=== PATIENT | male | born 1995 | race Caucasian/White ===

== ENCOUNTER 2023-03-30 07:59 | Inpatient (IN) | payer OTHER, SELFPAY ==
[2023-03-30] VITALS (79 sets, daily range): BP systolic 66–155; BP diastolic 41–87; PULSE 68–165; RESP 2–37; TEMP 37.3–37.4; O2SAT 95–100; BMI 22.3; BMI 24.3
--- NOTE | 2023-03-30 08:05 | ECG_ITS ---
[facility] Test Date: 2023-03-30 Pat Name: ADELA VILLASENOR Department: Room: - Gender: Male Medical Scribe: : 1995 Requested By: Order Number: [id number] Reading MD: STACEY WHELAN Measurements Intervals [place] Rate: 146 P: 79 SC: 142 QRS: 68 QRSD: 110 T: 80 QT: 304 QTc: 388 Interpretive Statements 1120 Sinus tachycardia 2440 Incomplete right bundle branch block Nonspecific ST/T wave changes 9150 abnormal ECG No previous ECG available for comparison Electronically Signed On 04-01-2023 11:35:14 EDT by STACEY WHELAN
--- NOTE | 2023-03-30 08:05 | XR_ITS ---
[address] [address] Patient Name: TYREL VILLASENOR MRN: [id number] date: 1995 Sex: M Assigned Patient Location: ER Current Patient Location: ER Accession/Order Number: [id number] Exam Date: 03/30/2023 08:13 Report Date: 03/30/2023 08:29 At the request of: IZTA HILL Procedure: XR chest 1V EXAM: XR chest 1V HISTORY: Tachycardia. COMPARISON: None. TECHNIQUE: AP erect portable view of the chest performed. FINDINGS: The trachea is normal. The cardiomediastinal silhouette and hilar shadows are normal. The lung volumes are normal. The lung baig are clear. There is no pneumothorax or osseous abnormality. IMPRESSION: Unremarkable AP erect portable chest radiograph. Electronically authenticated by: JAYSHREE MATSON Date: 03/30/2023 08:29
--- NOTE | 2023-03-30 08:10 | ED.PSYCH1 ---
HPI - Psych General Chief Complaint: Psychiatric Symptoms Stated Complaint: OVERDOSE Time Seen by Provider: 03/30/23 08:14 History of Present Illness HPI Narrative: 27-year-old male presents for psychiatric issues. He was apparently found wandering [place] the side of the highway and was brought in by police. He states he was doing cocaine and methamphetamine last night. He wants to go some place safe. There was no injury. He states he has a history of psychiatric issues. No fever or vomiting. It is not clear when his symptoms started. Related Data Home Medications Medication Instructions Recorded Confirmed buspirone 5 mg tablet 5 mg PO BID 03/30/23 03/30/23 divalproex 500 mg tablet,delayed 500 mg PO QID 03/30/23 03/30/23 release (Depakote) lorazepam 2 mg tablet 1 mg PO DAILY 03/30/23 03/30/23 Allergies Allergy/AdvReac Type Severity Reaction Status Date / Time No Known Drug Allergies Allergy Verified 03/30/23 08:09 Review of Systems ROS Narrative A ten point review of systems is negative except as noted above. PFS PFS Social History (Updated 03/30/23 @ 08:21 by Rosie Adamson) Within the past year, how often did you have a drink containing alcohol: monthly or less Within the past year, how many standard drinks containing alcohol did you have on a typical day: 5 or 6 Within the past year, how often did you have six or more drinks on one occasion: monthly Total score: 6 Score interpretation: A score of 4 or more indicates drinking is likely to affect patient's safety. Smoking status: Current every day smoker Exam Narrative Exam Narrative: Nurses note and vital signs reviewed and patient is not hypoxic. General: The patient appears to be twitching from time to time. He is cooperative. Skin: Warm, dry, no pallor noted. There is no rash noted. his hands are quite dirty because he states he was walking along the highway looking at things and picking things up. Head: Normocephalic, atraumatic Eye: Normal conjunctiva, no drainage, EOMI. PERRL Ears, Nose, Mouth, and Throat: oral mucosa is moist. Nares patent. Cardiovascular: Regular Rate and Rhythm, tachycardic Respiratory: Patient is in no distress, no accessory muscle use, lungs are clear to auscultation, no wheezing, rales or rhonchi Back: non-tender GI: soft and nontender Musculoskeletal: The patient has no evidence of calf tenderness, no pitting edema, symmetrical pulses noted bilaterally Neurological: A&O x4, normal speech Psychiatric: Cooperative Constitutional Vital Signs - 24 hr 03/30/23 08:11 Temperature 99.4 F Pulse Rate [Monitor] 145 H Respiratory Rate 21 Blood Pressure [Right Arm] 140/78 H Pulse Oximetry 97 Oxygen Delivery Method Room Air Course Vital Signs Vital signs: Vital Signs Temperature 99.4 F 03/30/23 08:11 Pulse Rate 145 H 03/30/23 08:11 Respiratory Rate 21 03/30/23 08:11 Blood Pressure 140/78 H 03/30/23 08:11 Pulse Oximetry 97 03/30/23 08:11 Oxygen Delivery Method Room Air 03/30/23 08:11 Temperature 99.4 F 03/30/23 08:11 Pulse Rate 145 H 03/30/23 08:11 Respiratory Rate 21 03/30/23 08:11 Blood Pressure 140/78 H 03/30/23 08:11 Pulse Oximetry 97 03/30/23 08:11 Oxygen Delivery Method Room Air 03/30/23 08:11 MDM - Psych MDM Narrative Medical decision making narrative: the patient presents because he was wandering on the side of the road and admits to using methamphetamine and cocaine which he tested positive for. He's been persistently tachycardic and was given IV fluids and a total of 2 mg of IV Ativan. Creatinine is 2.2 and potassium is 3.0. He was given IV fluids and oral potassium supplementation. WBC twenty-five thousand without a source of an infection. Blood cultures are pending. Elevated WBC is most likely from substance abuse. He is unable to give us any sort of definite psychiatric history but has a history of drug abuse. He cannot be cleared medically and will be admitted to ICU. Findings were discussed with the patient. Differential Diagnosis Differential diagnosis: Likely acute psychosis, bipolar disorder and drug-induced psychotic disorder Lab Data Attestation: I reviewed the patient's lab results. Labs: Lab Results 03/30/23 03/30/23 Range/Units 08:18 08:36 WBC 25.3 H (4.0-11.0) 10^3/uL RBC 4.84 (4.70-6.10) 10^6/uL Hgb 14.8 (14.0-18.0) g/dL Hct 42.6 (42.0-54.0) % MCV 88.0 (80.0-94.0) fL MCH 30.6 (25.9-34.0) pg MCHC 34.7 (29.9-35.2) g/dL RDW 12.3 (11.0-15.0) % Plt Count 199 (150-450) 10^3/uL MPV 10.3 (9.5-13.5) fL Seg Neuts % (Manual) 83.0 Lymphocytes % (Manual) 5.0 L (20.5-60.0) % Monocytes % (Manual) 12.0 (1.7-12.0) % Eosinophils % (Manual) 0.0 L (0.9-7.0) % Basophils % (Manual) 0.0 L (0.2-2.0) % Neutrophils # (Manual) 20.99 H (1.4-6.5) 10^3/uL Lymphocytes # (Manual) 1.26 (1.20-3.80) 10^3/uL Monocytes # (Manual) 3.03 H (0.30-0.80) 10^3/uL Eosinophils # (Manual) 0.00 (0.00-0.70) 10^3/uL Basophils # (Manual) 0.00 (0.00-0.10) 10^3/uL Sodium 142 (136-145) mmol/L Potassium 3.0 L (3.5-5.1) mmol/L Chloride 102 (98-107) mmol/L Carbon Dioxide 25.1 (21.0-32.0) mmol/L Anion Gap 17.9 BUN 18.0 (7.0-18.0) mg/dL Creatinine 2.18 H (0.70-1.30) mg/dL Est GFR ( Amer) 44 L (>=60) Est GFR (Non-Af Amer) 36 L (>=60) BUN/Creatinine Ratio 8.3 Glucose 81 (74-106) mg/dL Calcium 10.2 H (8.5-10.1) mg/dL Total Bilirubin 0.8 (0.2-1.0) mg/dL AST 148 H (15-37) U/L ALT 245 H (16-63) U/L Alkaline Phosphatase 63 (46-116) U/L Total Protein 8.7 H (6.4-8.2) g/dL Albumin 4.6 (3.4-5.0) g/dL Globulin 4.1 g/dL Albumin/Globulin Ratio 1.1 TSH 3.489 (0.358-3.740) uIU/mL Urine Color Yellow (YELLOW) Urine Clarity Clear (CLEAR) Urine pH 6.0 (5.0-9.0) Ur Specific [place] >=1.030 A (1.005-1.025) Urine Protein >=300 A (NEG/TRACE) mg/dL Urine Glucose (UA) Negative (NEGATIVE) mg/dL Urine Ketones Trace A (NEGATIVE) mg/dL Urine Occult Blood Large A (NEGATIVE) Urine Nitrite Negative (NEGATIVE) Urine Bilirubin Negative (NEGATIVE) Urine Urobilinogen 0.2 (0.2-1.0) EU/dL Ur Leukocyte Esterase Negative (NEGATIVE) Urine RBC 5-10 A (0-2) #/HPF Urine WBC 2-5 A (NONE SEEN) #/HPF Ur Squamous Epith Cells Few A (NONE/RARE) #/LPF Urine Crystals None seen (None Seen) #/HPF Urine Bacteria Trace A (NONE SEEN) #/HPF Urine Casts Seen A (NONE SEEN) #/LPF Hyaline Casts Few Urine Mucus Trace A (NONE SEEN) Urine Sperm Seen Ur Culture Indicated? No Urine Opiates Screen Negative (NEGATIVE) Ur Buprenorphine Scrn Negative (NEGATIVE) Ur Oxycodone Screen Negative (NEGATIVE) Urine Methadone Screen Negative (NEGATIVE) Ur Propoxyphene Screen Negative (NEGATIVE) Ur Barbiturates Screen Negative (NEGATIVE) U Tricyclic Antidepress Negative (NEGATIVE) Ur Phencyclidine Scrn Negative (NEGATIVE) Ur Amphetamines Screen Positive A (NEGATIVE) U Methamphetamines Scrn Positive A (NEGATIVE) U Benzodiazepines Scrn Negative (NEGATIVE) Urine Cocaine Screen Positive A (NEGATIVE) U Cannabinoids Screen Negative (NEGATIVE) Ethanol Quant <3 mg/dL ECG Data Attestation: I personally reviewed and interpreted this ECG as follows: (EKG on my interpretation shows sinus tachycardia.) Critical Care Time Critical Care Time Critical Care Time: Yes Total Critical Care Time: 35 Attestation: due to the high probability of sudden and significant clinical deterioration, critical care was necessary and provided by me. Discharge Plan Discharge Chief Complaint: Psychiatric Symptoms Clinical Impression: Active substance abuse Patient Disposition: Admitted As Inpatient Time of Disposition Decision: 09:29 Condition: Fair Prescriptions / Home Meds: No Action divalproex [Depakote] 500 mg tablet,delayed release (DR/EC) 500 mg PO QID buspirone 5 mg tablet 5 mg PO BID lorazepam 2 mg tablet 1 mg PO DAILY Referrals: Physician,Non-Staff, MD [Primary Care Provider] - 1 week
[2023-03-30] MEDS: LORAZEPAM 2 MG/ML 1 ML VIAL 1 MG IV ×2 (08:25→09:32)
[2023-03-30] MEDS: 0.9 % SODIUM CHLORIDE 1,000 ML 999 ML IV (08:25)
[2023-03-30 08:28] LABS: Hematocrit 42.6 % (42.0-54.0); Hemoglobin 14.8 g/dL (14.0-18.0); Mean Corpuscular HGB Conc 34.7 g/dL (29.9-35.2); Mean Corpuscular Hemoglobin 30.6 pg (25.9-34.0); Mean Platelet Volume 10.3 fL (9.5-13.5); Platelet Count 199 10^3/uL (150-450); Red Blood Count 4.84 10^6/uL (4.70-6.10); Red Cell Distribution Width 12.3 % (11.0-15.0); White Blood Count 25.3 10^3/uL (4.0-11.0)
[2023-03-30 08:46] LABS: Alanine Aminotransferase 245 U/L (16-63); Albumin Globulin Ratio 1.1; Albumin Level 4.6 g/dL (3.4-5.0); Alkaline Phosphatase 63 U/L (46-116); Anion Gap 17.9; Aspartate Amino Transferase 148 U/L (15-37); BUN Creatinine Ratio 8.3; Bilirubin Total 0.8 mg/dL (0.2-1.0); Calcium 10.2 mg/dL (8.5-10.1); Carbon Dioxide 25.1 mmol/L (21.0-32.0); Chloride 102 mmol/L (98-107); Estimated GFR (African America 44 (>=60); Estimated GFR (Non-African Ame 36 (>=60); Globulin 4.1 g/dL; Glucose 81 mg/dL (74-106); Sodium 142 mmol/L (136-145); Total Protein 8.7 g/dL (6.4-8.2)
[2023-03-30 08:51] LABS: Lymphocytes Absolute Manual 1.26 10^3/uL (1.20-3.80); Monocytes Absolute Manual 3.03 10^3/uL (0.30-0.80); Segmented Neut Absolute Manual 20.99 10^3/uL (1.4-6.5)
[2023-03-30 08:53] LABS: Bilirubin Urine NEGATIVE (NEGATIVE); Blood Urine LARGE (NEGATIVE); Clarity Urine CLEAR (CLEAR); Color Urine YELLOW (YELLOW); Glucose Urine UA NEGATIVE (NEGATIVE); Ketones Urine TRACE mg/dL (NEGATIVE); Leukocyte Esterase Urine NEGATIVE (NEGATIVE); Nitrite Urine NEGATIVE (NEGATIVE); Protein Urine >=300 mg/dL (NEG/TRACE); Specific Gravity Urine >=1.030 (1.005-1.025); Urobilinogen Urine 0.2 EU/dL (0.2-1.0)
[2023-03-30 08:54] LABS: Cannabinoid Screen Urine NEGATIVE (NEGATIVE); Cocaine Screen Urine POSITIVE (NEGATIVE); Phencyclidine Screen Urine NEGATIVE (NEGATIVE); Urine Microscopic Indicated YES
[2023-03-30 08:55] LABS: Amphetamine Screen Urine POSITIVE (NEGATIVE); Barbiturates Screen Urine NEGATIVE (NEGATIVE); Benzodiazepines Screen Urine NEGATIVE (NEGATIVE); Buprenorphine Screen Urine NEGATIVE (NEGATIVE); Methadone Screen Urine NEGATIVE (NEGATIVE); Methamphetamines Screen Urine POSITIVE (NEGATIVE); Opiate Screen Urine NEGATIVE (NEGATIVE); Oxycodone Screen Urine NEGATIVE (NEGATIVE); Tricyclic Antidepressant Urine NEGATIVE (NEGATIVE)
[2023-03-30 09:02] LABS: Cast Seen? SEEN #/LPF (NONE SEEN); Crystals Seen? None Seen #/HPF (None Seen); Hyaline Casts Urine FEW; Sperm Urine SEEN; Squamous Epithelial Cell Urine FEW #/LPF (NONE/RARE)
[2023-03-30 09:03] LABS: Ethanol <3 mg/dL
[2023-03-30 09:04] LABS: Bacteria Urine TRACE #/HPF (NONE SEEN); Mucus Urine TRACE (NONE SEEN); Urine Culture Indicated NO
[2023-03-30] MEDS: POTASSIUM BICARBONATE/CIT 25 MEQ TABLET EFF 50 MEQ PO (09:10)
[2023-03-30 09:12] LABS: Thyroid Stimulating Hormone 3.489 uIU/mL (0.358-3.740)
[2023-03-30 10:10] LABS: Creatine Kinase 3385 U/L (39-308)
[2023-03-30 11:01] LABS: Valproic Acid 27.9 ug/mL (50.0-100.0)
[2023-03-30] MEDS: NICOTINE 21 MG PATCH.TD24 TD ×2 (11:06→17:36)
[2023-03-30] MEDS: 0.9 % SODIUM CHLORIDE 1,000 ML 1000 ML IV (11:09)
--- NOTE | 2023-03-30 12:10 | US_ITS ---
[facility] [place] [id number] Patient Name: TYREL VILLASENOR MRN: [id number] date: 1995 Sex: M Assigned Patient Location: ICU Current Patient Location: ICU Accession/Order Number: [id number] Exam Date: 03/30/2023 17:23 Report Date: 03/30/2023 23:33 At the request of: SHAIKH HIRAL Procedure: US right upper quadrant EXAM: US right upper quadrant HISTORY: Abnormal LFTs COMPARISON: None. TECHNIQUE: Laws scale and color Doppler evaluation of the abdomen was performed. FINDINGS: The study is limited due to overlying large amount of bowel gas. Liver: The liver is normal in size. No focal lesion is identified. Normal echogenicity and echotexture. The central hepatic veins are patent. No biliary duct dilatation. Common bile duct measures 2 mm. Gallbladder: No gallstone or sludge within the lumen. No wall thickening. No pericholecystic fluid is seen. There are a couple of nonmobile polypoid lesions attached to the gallbladder anterior wall, largest measures 0.3 cm, likely represent gallbladder polyps. Pancreas: The visualized portions of the pancreas is unremarkable. Kidneys: The right kidney measures 10.2 x 5.1 x 4.8 cm with cortical thickness 1.2 cm. No cystic and solid mass, hydronephrosis or shadowing calculus is seen. Aorta and IVC: Unremarkable. IMPRESSION: No acute intra-abdominal findings. Incidental gallbladder polyps. Electronically authenticated by: VAISHNAVI VASQUESU Date: 03/30/2023 23:33
[2023-03-30] MEDS: LACTATED RINGER'S SOLUTION 1,000 ML 150 ML IV ×2 (13:23→20:16)
[2023-03-30] MEDS: HEPARIN SODIUM (PORCINE) 5,000 UNIT/ML VIAL 5000 UNIT SUBQ (13:26)
--- NOTE | 2023-03-30 17:02 | PM.HP ---
H&P: HPI History of Present Illness Chief complaint: Altered mental status Narrative: 27 y o male with hx of Bipolar disorder and substance abuse was wandering on a streets, acting strange, knocking on people's doors. Local PD got involved and brought him here for medical clearance. In ED, patient was initially too confused to provide any information wit his w/u showing leukocytosis, acute renal injury, rhabdomyolysis and persistent tachycardia for which he was admitted for further w/u and close monitoring. When I evaluated him, he was answering questions appropriately and admitted to using methamphetamine. He reports not eating /drinking for a couple of days now and has been outside in hot weather with no shade or food. Denies nausea, vomiting, chest pain, SOB, fever, cough, chills, abd pain, urinary or GI complaints. Review of Systems ROS Status of ROS 10 or more systems reviewed and unremarkable except as noted in history and below [facility] Medical History Family History Father CAD (coronary artery disease) Addiction to drug Social History Within the past year, how often did you have a drink containing alcohol: monthly or less Within the past year, how many standard drinks containing alcohol did you have on a typical day: 5 or 6 Within the past year, how often did you have six or more drinks on one occasion: monthly Total score: 6 Score interpretation: A score of 4 or more indicates drinking is likely to affect patient's safety. 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 Highest level of school completed/degree received: high school graduate Meds Home Medications and Allergies Home Medications Medication Instructions Recorded Confirmed Type buspirone 5 mg tablet 5 mg PO BID 03/30/23 03/30/23 History divalproex 500 mg tablet,delayed 500 mg PO QID 03/30/23 03/30/23 History release (Depakote) lorazepam 2 mg tablet 1 mg PO DAILY 03/30/23 03/30/23 History Allergies Allergy/AdvReac Type Severity Reaction Status Date / Time No Known Drug Allergies Allergy Verified 03/30/23 08:09 Exam Constitutional Vital Signs - 24 hr 03/30/23 08:11 03/30/23 08:03 03/30/23 08:10 Temperature 99.4 F Pulse Rate 150 H 144 H Pulse Rate [Monitor] 145 H Respiratory Rate 21 37 H 20 Blood Pressure Blood Pressure [Right Arm] 140/78 H Pulse Oximetry 97 98 97 Oxygen Delivery Method Room Air 03/30/23 08:20 03/30/23 08:30 03/30/23 08:40 Temperature Pulse Rate 140 H 149 H 138 H Pulse Rate [Monitor] Respiratory Rate 29 H 34 H 27 H Blood Pressure Blood Pressure [Right Arm] Pulse Oximetry 97 Oxygen Delivery Method 03/30/23 08:50 03/30/23 09:00 03/30/23 09:10 Temperature Pulse Rate 143 H 153 H 137 H Pulse Rate [Monitor] Respiratory Rate 25 H 26 H 21 Blood Pressure Blood Pressure [Right Arm] Pulse Oximetry Oxygen Delivery Method 03/30/23 09:20 03/30/23 09:30 03/30/23 09:40 Temperature Pulse Rate 146 H 147 H 143 H Pulse Rate [Monitor] Respiratory Rate 34 H 35 H 32 H Blood Pressure Blood Pressure [Right Arm] Pulse Oximetry Oxygen Delivery Method 03/30/23 09:50 03/30/23 09:53 03/30/23 09:53 Temperature Pulse Rate 148 H 145 H 136 H Pulse Rate [Monitor] Respiratory Rate 14 22 17 Blood Pressure 119/77 Blood Pressure [Right Arm] Pulse Oximetry 95 Oxygen Delivery Method 03/30/23 09:53 03/30/23 09:53 03/30/23 11:03 Temperature Pulse Rate 138 H 148 H 142 H Pulse Rate [Monitor] Respiratory Rate 27 H 34 H 30 H Blood Pressure 119/77 119/77 66/41 L Blood Pressure [Right Arm] Pulse Oximetry 97 Oxygen Delivery Method 03/30/23 11:06 03/30/23 11:28 03/30/23 11:30 Temperature Pulse Rate 165 H 148 H 146 H Pulse Rate [Monitor] Respiratory Rate 22 17 19 Blood Pressure 120/82 H Blood Pressure [Right Arm] Pulse Oximetry Oxygen Delivery Method 03/30/23 11:31 03/30/23 11:45 03/30/23 12:04 Temperature Pulse Rate 140 H 138 H 135 H Pulse Rate [Monitor] Respiratory Rate Blood Pressure 155/87 H 132/76 H Blood Pressure [Right Arm] Pulse Oximetry Oxygen Delivery Method 03/30/23 12:10 03/30/23 12:16 03/30/23 12:16 Temperature Pulse Rate 134 H 134 H Pulse Rate [Monitor] Respiratory Rate Blood Pressure 124/78 H Blood Pressure [Right Arm] Pulse Oximetry Oxygen Delivery Method 03/30/23 12:16 03/30/23 12:31 03/30/23 12:49 Temperature 99.2 F Pulse Rate 134 H 123 H Pulse Rate [Monitor] Respiratory Rate 18 Blood Pressure 124/78 H 130/74 H Blood Pressure [Right Arm] 116/82 H Pulse Oximetry 97 Oxygen Delivery Method Room Air 03/30/23 12:02 03/30/23 12:49 03/30/23 12:49 Temperature Pulse Rate 77 Pulse Rate [Monitor] Respiratory Rate Blood Pressure Blood Pressure [Right Arm] Pulse Oximetry 98 Oxygen Delivery Method Room Air Room Air 03/30/23 15:15 03/30/23 12:31 03/30/23 12:35 Temperature Pulse Rate 113 H 135 H 137 H Pulse Rate [Monitor] Respiratory Rate 18 9 L Blood Pressure 130/74 H Blood Pressure [Right Arm] Pulse Oximetry Oxygen Delivery Method 03/30/23 12:40 03/30/23 12:45 03/30/23 12:45 Temperature Pulse Rate 132 H Pulse Rate [Monitor] Respiratory Rate 32 H Blood Pressure 116/82 H Blood Pressure [Right Arm] Pulse Oximetry 98 Oxygen Delivery Method 03/30/23 12:50 03/30/23 13:00 03/30/23 13:10 Temperature Pulse Rate 128 H 128 H 133 H Pulse Rate [Monitor] Respiratory Rate 10 L 10 L 10 L Blood Pressure Blood Pressure [Right Arm] Pulse Oximetry Oxygen Delivery Method 03/30/23 13:20 03/30/23 13:30 03/30/23 13:40 Temperature Pulse Rate 123 H 130 H 103 H Pulse Rate [Monitor] Respiratory Rate 14 12 18 Blood Pressure Blood Pressure [Right Arm] Pulse Oximetry Oxygen Delivery Method 03/30/23 13:50 03/30/23 14:00 03/30/23 14:10 Temperature Pulse Rate 126 H 133 H 121 H Pulse Rate [Monitor] Respiratory Rate 13 18 19 Blood Pressure Blood Pressure [Right Arm] Pulse Oximetry Oxygen Delivery Method 03/30/23 14:20 03/30/23 14:30 03/30/23 14:40 Temperature Pulse Rate 137 H 121 H 115 H Pulse Rate [Monitor] Respiratory Rate 17 16 2 L Blood Pressure Blood Pressure [Right Arm] Pulse Oximetry Oxygen Delivery Method 03/30/23 14:50 03/30/23 15:00 03/30/23 15:10 Temperature Pulse Rate 116 H 112 H 120 H Pulse Rate [Monitor] Respiratory Rate 17 8 L 13 Blood Pressure Blood Pressure [Right Arm] Pulse Oximetry Oxygen Delivery Method 03/30/23 15:14 03/30/23 15:14 Temperature Pulse Rate 119 H 113 H Pulse Rate [Monitor] Respiratory Rate 12 18 Blood Pressure 108/78 Blood Pressure [Right Arm] Pulse Oximetry 100 Oxygen Delivery Method Documenting provider has reviewed patient's vital signs: yes Common normals: no apparent distress and oriented x3 General appearance: cooperative and comfortable Orientation/consciousness: Yes awake, Yes oriented to person, Yes oriented to place and Yes oriented to time HENMT Common normals: normocephalic and head/scalp atraumatic Respiratory Common normals: normal respiratory effort, no use of accessory muscles and clear to auscultation bilaterally Effort & inspection: able to speak in complete sentences Cardio Common normals: no JVD, regular rhythm, S1 normal heart sound, S2 normal heart sound and no murmurs Rate: tachycardic GI Common normals: Normal to inspection, nondistended, normoactive bowel sounds present, soft to palpation, non-tender and no hepatosplenomegaly Palpation: soft Extremity Common normals: normal to inspection and full ROM Neuro Common normals: oriented x3, CN's II-XII intact bilaterally, moves all extremities, no focal motor deficits and no sensory deficits noted Psych Common normals: mental status grossly normal, thought process normal, cooperative, denies homicidal ideation and denies suicidal ideation Speech: normal speech Mood and affect: flat affect Thought process: normal thought process Thought content: normal thought content Attention/concentration: attention grossly intact Memory/cognition: memory grossly intact Results Labs Labs: Short CBC 03/30/23 Range/Units 08:18 WBC 25.3 H (4.0-11.0) 10^3/uL Hgb 14.8 (14.0-18.0) g/dL Hct 42.6 (42.0-54.0) % Plt Count 199 (150-450) 10^3/uL BMP 03/30/23 08:18 Sodium 142 Potassium 3.0 L Chloride 102 Carbon Dioxide 25.1 BUN 18.0 Creatinine 2.18 H Glucose 81 Calcium 10.2 H Cardiac Enzymes 03/30/23 Range/Units 08:18 Total Creatine Kinase 3385 H* (39-308) U/L Liver Function 03/30/23 Range/Units 08:18 Total Bilirubin 0.8 (0.2-1.0) mg/dL AST 148 H (15-37) U/L ALT 245 H (16-63) U/L Alkaline Phosphatase 63 (46-116) U/L Albumin 4.6 (3.4-5.0) g/dL Urine 03/30/23 Range/Units 08:36 Urine Color Yellow (YELLOW) Urine Clarity Clear (CLEAR) Urine pH 6.0 (5.0-9.0) Ur Specific [place] >=1.030 A (1.005-1.025) Urine Protein >=300 A (NEG/TRACE) mg/dL Urine Glucose (UA) Negative (NEGATIVE) mg/dL Assessment and Plan Assessment and Plan (1) JAQUELINE (acute kidney injury): Assessment and Plan: Likely pre renal and possibly from rhabdomyolysis. Started on IVF. Monitor UO closely. Avoid nephrotoxins. (2) Rhabdomyolysis: Assessment and Plan: with JAQUELINE. C/w IVF. Trend CK daily Monitor UO Qualifiers: Rhabdomyolysis type: non-traumatic Qualified Code(s): M62.82 - Rhabdomyolysis (3) Substance abuse: Assessment and Plan: Reports methamphetamine use. Denies opioid or cocaine use. Educated and counseled on substance abuse (4) Leukocytosis: Assessment and Plan: likely reactive. No source of infection identified. CXR, UA normal Monitor. Qualifiers: Leukocytosis type: unspecified Qualified Code(s): D72.829 - Elevated white blood cell count, unspecified (5) Bipolar 1 disorder: Assessment and Plan: Hold Depakote due to transaminitis. C/w buspirone. (6) Change in mental status: Assessment and Plan: likey due to substance abuse and acute intoxication. Back to baseline Normal neuro exam. Monitor. Qualifiers: Altered mental status type: disorientation Qualified Code(s): R41.0 - Disorientation, unspecified (7) Abnormal liver enzymes: Assessment and Plan: likely due to dehydration. C/w IVF. US liver order to assess liver/GB pathology. Check hepatitis panel
--- NOTE | 2023-03-30 17:17 | SWNOTE1 ---
SW did meet with pt to discuss drug use and discharge plan. Pt was just at a sober living house and went through treatment. Pt was hard to understand at times as he was soft spoken. At this time he feels he has to prove himself to get back in to sober living and has to take care of himself. He does want mental health resources. SW did give him mental health resources and recommended [facility] out to [facility] as they have mental health/drug addiction resources. SW did ask if he had a safe place to live if he is dc. Pt stated he would go with his grandmother. At this time pt does not want SW to pursue any inpt facilities, but the resources were given to pt. SW updated nursing. Nursing gave him information for [facility] in [place] as well.
[2023-03-30 18:17] LABS: Hemoglobin 13.7 g/dL (14.0-18.0); Mean Corpuscular HGB Conc 36.1 g/dL (29.9-35.2); Mean Platelet Volume 10.4 fL (9.5-13.5); Platelet Count 179 10^3/uL (150-450); Red Blood Count 4.42 10^6/uL (4.70-6.10); Red Cell Distribution Width 12.5 % (11.0-15.0); White Blood Count 16.3 10^3/uL (4.0-11.0)
[2023-03-30 18:25] LABS: Anion Gap 13.8; BUN Creatinine Ratio 12.6; Calcium 8.8 mg/dL (8.5-10.1); Chloride 105 mmol/L (98-107); Estimated GFR (African America >60 (>=60); Estimated GFR (Non-African Ame >60 (>=60); Glucose 87 mg/dL (74-106); Potassium 3.8 mmol/L (3.5-5.1); Sodium 140 mmol/L (136-145)
[2023-03-30 18:44] LABS: Lymphocytes Absolute Manual 2.28 10^3/uL (1.20-3.80); Monocytes Absolute Manual 1.79 10^3/uL (0.30-0.80); Segmented Neut Absolute Manual 12.22 10^3/uL (1.4-6.5)
[2023-03-30] MEDS: BUSPIRONE HCL 10 MG TABLET 5 MG PO (21:22)
[2023-03-31] VITALS (35 sets, daily range): BP systolic 99–127; BP diastolic 35–86; PULSE 69–118; RESP 4–150; TEMP 36.4–36.9; O2SAT 97–100
[2023-03-31] MEDS: LACTATED RINGER'S SOLUTION 1,000 ML 150 ML IV ×3 (02:55→17:45)
[2023-03-31 04:41] LABS: Basophils Percent Auto 0.2 % (0.2-2.0); Eosinophils Absolute Auto 0.1 10^3/uL (0.0-0.7); Eosinophils Percent Auto 0.8 % (0.9-7.0); Hematocrit 36.3 % (42.0-54.0); Hemoglobin 12.5 g/dL (14.0-18.0); Immature Granulocytes Abs Auto 0.02 10^3/uL (0.00-0.03); Immature Granulocytes Pct Auto 0.2 % (0.0-0.5); Lymphocytes Absolute Auto 2.2 10^3/uL (1.2-3.8); Lymphocytes Percent Auto 24.3 % (20.5-60.0); Mean Corpuscular HGB Conc 34.4 g/dL (29.9-35.2); Mean Corpuscular Hemoglobin 30.6 pg (25.9-34.0); Mean Platelet Volume 10.6 fL (9.5-13.5); Neutrophils Absolute Auto 5.8 10^3/uL (1.4-6.5); Neutrophils Percent Auto 63.5 % (43.0-75.0); Platelet Count 146 10^3/uL (150-450); Red Blood Count 4.08 10^6/uL (4.70-6.10); Red Cell Distribution Width 12.5 % (11.0-15.0); White Blood Count 9.2 10^3/uL (4.0-11.0)
[2023-03-31 04:59] LABS: Alanine Aminotransferase 255 U/L (16-63); Albumin Level 3.1 g/dL (3.4-5.0); Alkaline Phosphatase 42 U/L (46-116); Anion Gap 9.4; Aspartate Amino Transferase 235 U/L (15-37); BUN Creatinine Ratio 13.3; Bilirubin Total 0.9 mg/dL (0.2-1.0); Calcium 8.6 mg/dL (8.5-10.1); Carbon Dioxide 28.2 mmol/L (21.0-32.0); Chloride 107 mmol/L (98-107); Estimated GFR (African America >60 (>=60); Estimated GFR (Non-African Ame >60 (>=60); Glucose 83 mg/dL (74-106); Potassium 3.6 mmol/L (3.5-5.1); Sodium 141 mmol/L (136-145); Total Protein 6.1 g/dL (6.4-8.2)
[2023-03-31 05:19] LABS: Creatine Kinase 7373 U/L (39-308)
[2023-03-31] MEDS: BUSPIRONE HCL 10 MG TABLET 5 MG PO ×2 (08:48→20:38)
--- NOTE | 2023-03-31 13:22 | P.PN_ITS ---
Progress Note: Subjective Subjective Interval history: Patient feels well this am. Alert and oriented. No pain or confusion. C/o feeling shaky and going through nicotine withdrawal despite wearing 2 patches. Afebrile. Normal appetite and no emesis or diarrhea. No chest pain or palpitations. No SOB or cough. Wants to go home. Exam Constitutional Vital Signs - 24 hr 03/30/23 15:15 03/30/23 13:30 03/30/23 13:40 Temperature Pulse Rate 113 H 130 H 103 H Pulse Rate [Monitor] Respiratory Rate 12 18 Blood Pressure Pulse Oximetry 03/30/23 13:50 03/30/23 14:00 03/30/23 14:10 Temperature Pulse Rate 126 H 133 H 121 H Pulse Rate [Monitor] Respiratory Rate 13 18 19 Blood Pressure Pulse Oximetry 03/30/23 14:20 03/30/23 14:30 03/30/23 14:40 Temperature Pulse Rate 137 H 121 H 115 H Pulse Rate [Monitor] Respiratory Rate 17 16 2 L Blood Pressure Pulse Oximetry 03/30/23 14:50 03/30/23 15:00 03/30/23 15:10 Temperature Pulse Rate 116 H 112 H 120 H Pulse Rate [Monitor] Respiratory Rate 17 8 L 13 Blood Pressure Pulse Oximetry 03/30/23 15:14 03/30/23 15:14 03/30/23 17:05 Temperature Pulse Rate 119 H 113 H 112 H Pulse Rate [Monitor] Respiratory Rate 12 18 Blood Pressure 108/78 Pulse Oximetry 100 03/30/23 20:00 03/30/23 20:00 03/30/23 22:00 Temperature Pulse Rate 88 68 Pulse Rate [Monitor] Respiratory Rate 14 Blood Pressure Pulse Oximetry 03/31/23 00:30 03/31/23 00:30 03/30/23 18:50 Temperature Pulse Rate 92 H 119 H Pulse Rate [Monitor] 98 H Respiratory Rate 16 Blood Pressure Pulse Oximetry 03/30/23 19:00 03/30/23 19:10 03/30/23 19:20 Temperature Pulse Rate 101 H 109 H 112 H Pulse Rate [Monitor] Respiratory Rate 8 L 9 L 25 H Blood Pressure Pulse Oximetry 03/30/23 19:30 03/30/23 19:40 03/30/23 19:50 Temperature Pulse Rate 116 H 105 H 111 H Pulse Rate [Monitor] Respiratory Rate 24 9 L 30 H Blood Pressure Pulse Oximetry 03/30/23 20:00 03/30/23 20:10 03/30/23 20:15 Temperature Pulse Rate 116 H 112 H Pulse Rate [Monitor] Respiratory Rate 22 20 Blood Pressure 115/73 Pulse Oximetry 03/30/23 20:15 03/30/23 20:20 03/30/23 20:30 Temperature Pulse Rate 115 H 107 H 121 H Pulse Rate [Monitor] Respiratory Rate 27 H 29 H 9 L Blood Pressure Pulse Oximetry 03/30/23 20:40 03/30/23 20:50 03/30/23 21:00 Temperature Pulse Rate 110 H 112 H 110 H Pulse Rate [Monitor] Respiratory Rate 27 H 32 H 21 Blood Pressure Pulse Oximetry 03/30/23 21:10 03/30/23 21:20 03/30/23 21:30 Temperature Pulse Rate 112 H 110 H 111 H Pulse Rate [Monitor] Respiratory Rate 28 H 9 L 23 Blood Pressure Pulse Oximetry 03/30/23 21:40 03/30/23 21:50 03/30/23 22:00 Temperature Pulse Rate 99 H 106 H 115 H Pulse Rate [Monitor] Respiratory Rate 18 Blood Pressure Pulse Oximetry 03/30/23 22:10 03/30/23 22:20 03/30/23 22:30 Temperature Pulse Rate 117 H 108 H 102 H Pulse Rate [Monitor] Respiratory Rate 24 18 30 H Blood Pressure Pulse Oximetry 03/30/23 22:40 03/30/23 22:50 03/30/23 23:00 Temperature Pulse Rate 104 H 97 H 106 H Pulse Rate [Monitor] Respiratory Rate 29 H 25 H 24 Blood Pressure Pulse Oximetry 03/30/23 23:10 03/30/23 23:20 03/30/23 23:30 Temperature Pulse Rate 103 H 109 H 118 H Pulse Rate [Monitor] Respiratory Rate 24 13 18 Blood Pressure Pulse Oximetry 03/30/23 23:40 03/30/23 23:50 03/31/23 00:00 Temperature Pulse Rate 112 H 89 97 H Pulse Rate [Monitor] Respiratory Rate 37 H 36 H 27 H Blood Pressure Pulse Oximetry 03/31/23 00:10 03/31/23 00:20 03/31/23 00:30 Temperature Pulse Rate 100 H 101 H 118 H Pulse Rate [Monitor] Respiratory Rate 45 H 89 H Blood Pressure Pulse Oximetry 03/31/23 00:40 03/31/23 00:44 03/31/23 00:44 Temperature Pulse Rate 113 H 95 H Pulse Rate [Monitor] Respiratory Rate 150 H 69 H Blood Pressure 120/74 H Pulse Oximetry 03/31/23 00:50 03/31/23 01:00 03/31/23 01:10 Temperature Pulse Rate 107 H 95 H 98 H Pulse Rate [Monitor] Respiratory Rate 39 H 23 30 H Blood Pressure Pulse Oximetry 03/31/23 02:00 03/31/23 04:30 03/31/23 04:30 Temperature Pulse Rate 78 91 H Pulse Rate [Monitor] 92 H Respiratory Rate 14 Blood Pressure Pulse Oximetry 03/31/23 04:26 03/31/23 04:26 03/31/23 06:00 Temperature Pulse Rate 78 72 72 Pulse Rate [Monitor] Respiratory Rate 16 14 Blood Pressure 99/35 L 99/35 L Pulse Oximetry 99 100 03/31/23 07:50 03/31/23 07:50 03/31/23 07:55 Temperature 98.1 F Pulse Rate 88 Pulse Rate [Monitor] 88 Respiratory Rate 18 18 Blood Pressure 127/80 H Pulse Oximetry 100 03/31/23 11:11 03/31/23 11:56 Temperature Pulse Rate 78 Pulse Rate [Monitor] 70 Respiratory Rate 18 Blood Pressure Pulse Oximetry Documenting provider has reviewed patient's vital signs: yes Common normals: no apparent distress, oriented x3 and alert HENMT Common normals: normocephalic Eye Common normals: PERRL and EOMs intact bilaterally Respiratory Common normals: clear to auscultation bilaterally Cardio Common normals: regular rate, regular rhythm, no gallops, no murmurs and no rub GI Common normals: Normal to inspection, nondistended, normoactive bowel sounds present and non-tender Extremity General: no edema Progress Note: Objective Labs Labs: Short CBC 03/30/23 03/31/23 Range/Units 18:05 04:20 WBC 16.3 H 9.2 (4.0-11.0) 10^3/uL Hgb 13.7 L 12.5 L (14.0-18.0) g/dL Hct 38.0 L 36.3 L (42.0-54.0) % Plt Count 179 146 L (150-450) 10^3/uL BMP 03/30/23 03/31/23 18:05 04:20 Sodium 140 141 Potassium 3.8 3.6 Chloride 105 107 Carbon Dioxide 25.0 28.2 BUN 15.0 14.0 Creatinine 1.19 1.05 Glucose 87 83 Calcium 8.8 8.6 Cardiac Enzymes 03/31/23 Range/Units 05:15 Total Creatine Kinase 7373 H* (39-308) U/L Liver Function 03/31/23 Range/Units 04:20 Total Bilirubin 0.9 (0.2-1.0) mg/dL AST 235 H (15-37) U/L ALT 255 H (16-63) U/L Alkaline Phosphatase 42 L (46-116) U/L Albumin 3.1 L (3.4-5.0) g/dL Progress Note: A&P Assessment and Plan (1) JAQUELINE (acute kidney injury): (2) Rhabdomyolysis: Qualifiers: Rhabdomyolysis type: non-traumatic Qualified Code(s): M62.82 - Rhabdomyolysis (3) Substance abuse: (4) Leukocytosis: Qualifiers: Leukocytosis type: unspecified Qualified Code(s): D72.829 - Elevated white blood cell count, unspecified (5) Bipolar 1 disorder: (6) Change in mental status: Qualifiers: Altered mental status type: disorientation Qualified Code(s): R41.0 - Disorientation, unspecified (7) Abnormal liver enzymes: Plan 1. 1. Rhabdomyolysis 2. Polysubstance abuse 3. Elevated LFTs 4. Bipolar 5. JAQUELINE Patient feels well but labs worse. CK elevated and LFTs worse. Continue IV f luids. Increase PO intake. Advised need to stay in hospital until labs start to improve.
--- NOTE | 2023-03-31 20:16 | PC.NURSE ---
patient refusing telemetry at this time. denies chest pain or feelings of palpitations
--- NOTE | 2023-03-31 20:26 | PC.NURSE ---
patient continuing to refuse telemetry. denies chest pain.
--- NOTE | 2023-03-31 22:08 | PC.NURSE ---
telemetry off at this time. Patient continues refusal
[2023-04-01] VITALS: RESP 16
--- NOTE | 2023-04-01 00:07 | PC.NURSE ---
telemetry remains off at this time.
[2023-04-01 01:55] VITALS: BP 102/57
[2023-04-01 01:57] VITALS: BP 102/57; PULSE 87; RESP 18; TEMP 36.6; O2SAT 99
[2023-04-01] MEDS: LACTATED RINGER'S SOLUTION 1,000 ML 150 ML IV (04:19)
[2023-04-01 05:33] LABS: Basophils Percent Auto 0.4 % (0.2-2.0); Eosinophils Absolute Auto 0.2 10^3/uL (0.0-0.7); Eosinophils Percent Auto 2.8 % (0.9-7.0); Hematocrit 36.5 % (42.0-54.0); Hemoglobin 12.2 g/dL (14.0-18.0); Immature Granulocytes Abs Auto 0.01 10^3/uL (0.00-0.03); Immature Granulocytes Pct Auto 0.2 % (0.0-0.5); Lymphocytes Absolute Auto 1.7 10^3/uL (1.2-3.8); Lymphocytes Percent Auto 31.2 % (20.5-60.0); Mean Corpuscular HGB Conc 33.4 g/dL (29.9-35.2); Mean Corpuscular Hemoglobin 30.5 pg (25.9-34.0); Mean Corpuscular Volume 91.3 fL (80.0-94.0); Monocytes Absolute Auto 0.6 10^3/uL (0.3-0.8); Monocytes Percent Auto 10.3 % (1.7-12.0); Neutrophils Percent Auto 55.1 % (43.0-75.0); Platelet Count 134 10^3/uL (150-450); Red Cell Distribution Width 12.5 % (11.0-15.0); White Blood Count 5.4 10^3/uL (4.0-11.0)
[2023-04-01 05:55] LABS: Alanine Aminotransferase 328 U/L (16-63); Alkaline Phosphatase 52 U/L (46-116); Anion Gap 11.1; Aspartate Amino Transferase 231 U/L (15-37); BUN Creatinine Ratio 11.1; Bilirubin Total 0.4 mg/dL (0.2-1.0); Calcium 8.4 mg/dL (8.5-10.1); Carbon Dioxide 27.3 mmol/L (21.0-32.0); Chloride 108 mmol/L (98-107); Estimated GFR (African America >60 (>=60); Estimated GFR (Non-African Ame >60 (>=60); Glucose 129 mg/dL (74-106); Potassium 3.4 mmol/L (3.5-5.1); Sodium 143 mmol/L (136-145)
[2023-04-01 06:09] LABS: Creatine Kinase 3126 U/L (39-308)
--- NOTE | 2023-04-01 07:05 | PC.NURSE ---
Patient maintains refusal of telemetry at this time.
[2023-04-01] MEDS: BUSPIRONE HCL 10 MG TABLET 5 MG PO (08:54)
[2023-04-01 09:00] VITALS: BP 125/84; PULSE 78; RESP 18; TEMP 36.7; O2SAT 98
--- NOTE | 2023-04-01 09:10 | PC.NURSE ---
patient maintains refusal of telemetry. denies chest pain and palpitations
--- NOTE | 2023-04-01 13:49 | PM.DS1 ---
DS: Providers Provider Date of admission: 03/30/23 09:49 Primary care physician: Non-Staff PhysicianMD DS: Diagnosis Discharge Diagnosis (1) JAQUELINE (acute kidney injury): (2) Rhabdomyolysis: Qualifiers: Rhabdomyolysis type: non-traumatic Qualified Code(s): M62.82 - Rhabdomyolysis (3) Substance abuse: (4) Leukocytosis: Qualifiers: Leukocytosis type: unspecified Qualified Code(s): D72.829 - Elevated white blood cell count, unspecified (5) Bipolar 1 disorder: (6) Change in mental status: Qualifiers: Altered mental status type: disorientation Qualified Code(s): R41.0 - Disorientation, unspecified (7) Abnormal liver enzymes: Plan Primary diagnosis: Rhabdomyolysis Secondary diagnosis: 1. Polysubstance abuse 2. Elevated LFTs 3. Bipolar 4. JAQUELINE DS: Summary Hospital Course Hospital Course: Reason for admission: See ER note and H&P for details. 27 y/o male to ER with altered mental status. Found walking on side of road and brought in by police. Admitted to using cocaine and meth. Labs in ER showed JAQUELINE and rhabdomyolysis. Started IV fluids and admitted. Hospital course: [facility] well in hospital. Continued IV fluids. LFTs elevated and US liver performed and normal. CPK and LFTs elevated. Patient felt well and wanted to leave but advised to stay until labs improving. Labs started to improve but remained elevated. Afebrile. Eating well. Discharged home in stable condition. Increase fluid intake. Resume home medication as directed. F/u with PCP in 1-2 weeks and will need to monitor labs. Status at Discharge Functional status at discharge: independent ambulation Overall status at discharge: patient is back to baseline Time Spent with Patient Time attestation: Total time spent providing and/or coordinating discharge services: Exam Constitutional Vital Signs - 24 hr 03/31/23 14:12 03/31/23 16:07 03/31/23 16:15 Temperature Pulse Rate 83 74 Pulse Rate [Monitor] 72 Respiratory Rate 18 Blood Pressure Blood Pressure [Right Arm] Pulse Oximetry Oxygen Delivery Method 03/31/23 20:00 03/31/23 20:00 04/01/23 00:00 Temperature Pulse Rate Pulse Rate [Monitor] Respiratory Rate 18 18 16 Blood Pressure Blood Pressure [Right Arm] 110/86 H Pulse Oximetry 99 Oxygen Delivery Method Room Air 04/01/23 09:00 04/01/23 09:00 04/01/23 01:57 Temperature 98.1 F 98 F Pulse Rate 87 Pulse Rate [Monitor] 78 Respiratory Rate 18 18 18 Blood Pressure Blood Pressure [Right Arm] 125/84 H 102/57 L Pulse Oximetry 98 99 Oxygen Delivery Method Room Air Room Air 03/31/23 14:00 03/31/23 15:00 03/31/23 16:00 Temperature Pulse Rate 82 69 75 Pulse Rate [Monitor] Respiratory Rate Blood Pressure Blood Pressure [Right Arm] Pulse Oximetry Oxygen Delivery Method 03/31/23 16:54 04/01/23 01:55 Temperature Pulse Rate 99 H Pulse Rate [Monitor] Respiratory Rate Blood Pressure 102/57 L Blood Pressure [Right Arm] Pulse Oximetry Oxygen Delivery Method Documenting provider has reviewed patient's vital signs: yes Common normals: no apparent distress, oriented x3 and alert HENMT Common normals: normocephalic Eye Common normals: PERRL and EOMs intact bilaterally Respiratory Common normals: clear to auscultation bilaterally Cardio Common normals: regular rate, regular rhythm, no gallops, no murmurs and no rub GI Common normals: Normal to inspection, nondistended, normoactive bowel sounds present and non-tender Extremity General: no edema DS: Data Data Completed and Pending Labs on day of discharge: Labs from last 24 hours 04/01/23 04:19 WBC 5.4 RBC 4.00 L Hgb 12.2 L Hct 36.5 L MCV 91.3 MCH 30.5 MCHC 33.4 RDW 12.5 Plt Count 134 L MPV 11.0 Neut % (Auto) 55.1 Lymph % (Auto) 31.2 Christian % (Auto) 10.3 Eos % (Auto) 2.8 Baso % (Auto) 0.4 Neut # (Auto) 3.0 Lymph # (Auto) 1.7 Christian # (Auto) 0.6 Eos # (Auto) 0.2 Baso # (Auto) 0.0 Abs Immat Gran (auto) 0.01 Imm/Tot Granulo (auto) 0.2 Sodium 143 Potassium 3.4 L Chloride 108 H Carbon Dioxide 27.3 Anion Gap 11.1 BUN 10.0 Creatinine 0.90 Est GFR ( Amer) >60 Est GFR (Non-Af Amer) >60 BUN/Creatinine Ratio 11.1 Glucose 129 H Calcium 8.4 L Total Bilirubin 0.4 AST 231 H ALT 328 H Alkaline Phosphatase 52 Total Creatine Kinase 3126 H* Total Protein 6.0 L Albumin 3.0 L Globulin 3.0 Albumin/Globulin Ratio 1.0 Preliminary micro results at discharge 03/30/23 09:27 - Preliminary Blood NO GROWTH AT 36-48 HOURS. FINAL TO FOLLOW. 03/30/23 09:22 Blood Culture Result 1 - Preliminary Blood NO GROWTH AT 36-48 HOURS. FINAL TO FOLLOW. Discharge Plan Discharge Disposition: Home, Self-Care Condition: Fair Discharge Medications: Continued divalproex [Depakote] 500 mg tablet,delayed release (DR/EC) 1,000 mg PO QAM buspirone 5 mg tablet 15 mg PO TID lorazepam 2 mg tablet 1 mg PO DAILY olanzapine 5 mg tablet 5 mg PO QPM Activity: increase activity as tolerated and resume usual activities as tolerated Diet: advance to your usual diet Diet Detail: regular Patient Instructions: Rhabdomyolysis (DC), Altered Mental Status (GEN) Forms: Portal Instructions Follow Up Appointments: Follow up with PCP within 7 to 10 days following discharge or as soon as possible Discharge Date/Time: 04/01/23 11:50
--- NOTE | 2023-04-02 14:43 | CM.DCFOLLOWU ---
Phone number listed is pt's father, he does not have contact with him. Not able to completed discharge follow up call, no other number is listed.
[2023-04-03 14:08] LABS: HBsAg Screen Negative (Negative); HCV Ab Reactive (Non Reactive); Hep A Ab, IgM Negative (Negative); Hep B Core Ab, IgM Negative (Negative)
== END 2023-04-01 11:50 | disposition home or self-care (01) | DRG 351 ==
LOC: ER 09:29 → ICU 09:51
PROVIDERS: Admitting Provider Family Medicine; Emergency Provider Emergency Medicine; Visit Provider Internal Medicine
DX: M62.82 Rhabdomyolysis (principal); N17.9 Acute kidney failure, unspecified; D72.829 Elevated white blood cell count, unspecified; F31.9 Bipolar disorder, unspecified; R41.0 Disorientation, unspecified; R74.8 Abnormal levels of other serum enzymes; F14.10 Cocaine abuse, uncomplicated; F15.10 Other stimulant abuse, uncomplicated; E86.0 Dehydration; Z79.899 Other long term (current) drug therapy; F17.210 Nicotine dependence, cigarettes, uncomplicated; Z82.49 Family history of ischemic heart disease and other diseases of the circulatory system; Z81.8 Family history of other mental and behavioral disorders
CPT/HCPCS: 36415; 71045; 76705; 80048; 80053; 80074; 80164; 80307; 80320; 81003; 81015; 82550; 84443; 85007; 85025; 87040; 87522; 93005; 96372; 96374; 96376; 99285